=== PATIENT | female | born 1960 | race Caucasian/White ===

== ENCOUNTER → 2025-05-15 20:24 | Outpatient (REF) | payer MEDICARE, OTHER, SELFPAY | LOC: MRI 3T 20:24 | PROVIDERS: ATTENDING PHYSICIAN Surgery; FAMILY PHYSICIAN Family Medicine | DX: C50.412 Malignant neoplasm of upper-outer quadrant of left female breast (principal); Z17.0 Estrogen receptor positive status [ER+] | CPT/HCPCS: 77049; A9585 ==

== ENCOUNTER → 2025-06-01 08:07 | Outpatient (REF) | payer MEDICARE, OTHER, SELFPAY ==
[2025-06-01 08:49] LABS: Glucose 114 mg/dl (70-99)
== END ==
LOC: REG 08:07
PROVIDERS: ATTENDING PHYSICIAN Surgery; FAMILY PHYSICIAN Family Medicine
DX: Z01.818 Encounter for other preprocedural examination (principal); R73.09 Other abnormal glucose
CPT/HCPCS: 36415; 82947

== ENCOUNTER → 2025-09-07 11:47 | Outpatient (REF) | payer MEDICARE, OTHER, SELFPAY | LOC: MRI 3T 11:47 | PROVIDERS: ATTENDING PHYSICIAN Internal Medicine Hematology & Oncology; FAMILY PHYSICIAN Family Medicine | DX: C50.912 Malignant neoplasm of unspecified site of left female breast (principal) | CPT/HCPCS: 77049; A9585 ==